=== PATIENT | male | born 1995 | race Caucasian/White ===

== ENCOUNTER 2017-01-12 21:22 | Emergency (ER) | payer SELFPAY ==
[~2017-01-12] VITALS: Ht 167.6 cm; Wt 69.0 kg
[2017-01-12] MEDS ORDERED: KETOROLAC 60MG/2ML VIAL IM ONE (22:30)
[2017-01-12] MEDS ORDERED: TETANUS, DIPHTHERIA, PERTUSSIS VAC/PF 0.5ML (>7YR OLD) IM ONE (22:30)
[2017-01-12 23:45] VITALS: BP 113/71
== END 2017-01-12 23:45 | disposition home or self-care (01) ==
LOC: ER 21:22
DX: S50.312A Abrasion of left elbow, initial encounter (principal); S50.311A Abrasion of right elbow, initial encounter; M79.604 Pain in right leg; M25.512 Pain in left shoulder; V13.4XXA Pedal cycle driver injured in collision with car, pick-up truck or van in traffic accident, initial encounter; Y93.I9 Activity, other involving external motion; Y92.410 Unspecified street and highway as the place of occurrence of the external cause; Y99.8 Other external cause status
CPT/HCPCS: 71010; 73030; 73562; 90715; 96372; 99284; J1885; Z7610